=== PATIENT | female | born 1950 | race Two or more races ===

== ENCOUNTER 2024-08-07 07:04 | Day surgery (SDC) | payer OTHER ==
[2024-08-04 11:41] LABS: HEMATOCRIT 40.4 % (36.0-45.00); HEMOGLOBIN 13.4 g/dL (12.0-15.00); MEAN CELL VOLUME 91.1 fL (80.00-100.00); MEAN CORPUSCULAR HEMOGLOBIN 30.2 pg (27.00-32.0); MEAN CORPUSCULAR HGB CONC 33.2 g/dl (32.0-36.0); PLATELET COUNT 262 K/uL (150-450); RED BLOOD COUNT 4.43 M/uL (4.00-6.00); RED CELL DISTRIBUTION WIDTH 13.3 % (11.5-14.5)
[2024-08-04 11:54] LABS: PH,URINE 5.5 (5.0-8.0); URINE APPEARANCE Clear; URINE BILIRRUBIN Negative (NEGATIVE); URINE BLOOD Negative; URINE COLOR Yellow; URINE GLUCOSE Negative (NEGATIVE); URINE KETONE Negative (NEGATIVE); URINE LEUKOCYTE Small; URINE NITRATE Negative; URINE PROTEIN Negative (NEGATIVE); URINE UROBILINOGEN 0.2 E.U./dl
[2024-08-04 11:56] LABS: URINE BACTERIA 205.3 uL (0.0-1933); URINE EPITHELIAL CELLS 7.2 uL (0.0-38.8); URINE RBC 5.3 uL (0.0-20.8)
[2024-08-04 12:12] LABS: INR 1.06; PARTIAL THROMBOPLASTIN TIME 33.4 SECONDS (22.0-34.0)
[2024-08-04 12:25] LABS: ALBUMIN 3.8 gm/dL (3.4-5.0); BILIRUBIN TOTAL 0.55 mg/dL (0.3-1.2); CALCIUM 9.2 mg/dL (8.5-10.1); CREATININE SERUM 0.72 mg/dL (0.55-1.02); GFR 78.75; GLOBULINA 3.4 G/DL (2.4-3.5); POTASSIUM 3.86 mEq/L (3.5-5.1); TOTAL PROTEIN 7.2 gm/dL (6.4-8.2)
[2024-08-04 12:28] LABS: PROTHROMBIN TIME 11.5 SECONDS (9.0-11.5)
[2024-08-04 13:55] VITALS: BP 150/75
[~2024-08-07 07:04] MED LIST: ALZ SR CAPLET1 EACH PO; ANASTROZOLE1 MG PO; CHILDREN'S ASPI81 MG PO; COZAAR100 MG PO; ISOSORBIDE DINI30 MG PO; LIPITOR40 MG PO; NAMENDA XR28 MG PO; TOPROL XL50 M1 PO; ZETIA10 MG PO
[2024-08-07] MEDS ORDERED: CEFAZOLIN SODIUM 1,000 MG VIAL ONE (12:30)
[2024-08-07] MEDS ORDERED: CHLORHEXIDINE GLUCONATE 120 ML BOTTLE TOP ONE (12:41)
== END 2024-08-07 17:40 | disposition home or self-care (01) ==
LOC: CIR.AMB 07:04
PROVIDERS: ATTEND Surgery
DX: C50.411 Malignant neoplasm of upper-outer quadrant of right female breast (principal); R59.0 Localized enlarged lymph nodes; I10 Essential (primary) hypertension; E78.00 Pure hypercholesterolemia, unspecified
CPT/HCPCS: 19301; 38525; 19285; L8699